=== PATIENT | male | born 1930 | race Caucasian/White ===

== ENCOUNTER 2017-10-20 10:58 | Emergency (ER) | payer MEDICARE ==
[~2017-10-20] VITALS: Ht 172.7 cm; Wt 66.4 kg
[2017-10-20 10:59] VITALS: BP 130/55; Ht 172.7 cm; Wt 66.4 kg
[2017-10-20] MEDS ORDERED: TENORMIN25 MG PO (11:02)
[2017-10-20] MEDS ORDERED: MINIPRESS2 MG PO (11:03)
[2017-10-20] MEDS ORDERED: DEPAKOTE SPRIN125 MG PO ×2 (11:03→11:06)
[2017-10-20] MEDS ORDERED: PROTONIX40 MG PO (11:04)
[2017-10-20] MEDS ORDERED: VICKS VAPORUB O50 GM TOPICAL (11:04)
[2017-10-20] MEDS ORDERED: LEVSIN/ANASP0.125 MG PO (11:05)
[2017-10-20] MEDS ORDERED: COLACE100 MG PO (11:05)
[2017-10-20] MEDS ORDERED: TEGRETOL XR200 M1 PO (11:05)
[2017-10-20] MEDS ORDERED: FLOMAX0.4 MG PO (11:05)
[2017-10-20] MEDS ORDERED: EFFEXOR37.5 MG PO (11:06)
[2017-10-20] MEDS ORDERED: MIRALAX17 GM PO (11:06)
[2017-10-20] MEDS ORDERED: ACETAMINOPHEN325 MG PO (11:07)
[2017-10-20] MEDS ORDERED: ZOFRAN ODT4 MG/UDTAB PO (11:07)
[2017-10-20] MEDS ORDERED: PREPARATION H O57 GM TOPICAL (11:07)
[2017-10-20 12:59] LABS: ALBUMIN 2.7 g/dL (3.4-5.0); ALKALINE PHOSPHATASE 116 U/L (46-116); ALT (SGPT) 13 U/L (10-68); BILIRUBIN - TOTAL 0.19 mg/dL (0.2-1.3); CALC OSMOLALITY 276 mosm/kg (275-300); CALCIUM 8.5 mg/dL (8.5-10.1); CARBON DIOXIDE 27.2 mmol/L (21.0-32.0); CHLORIDE - SERUM 102 mmol/L (98-107); GLUCOSE 110 mg/dL (74-106); POTASSIUM - SERUM 5.1 mmol/L (3.5-5.1); PROTEIN - SERUM 6.8 g/dL (6.4-8.2); SODIUM 137 mmol/L (136-145); UREA NITROGEN 19 mg/dL (7-18); eGFR NON AFRICAN AMERICAN 75 mL/min (90-120)
[2017-10-20 14:32] LABS: BASOPHILS 0.3 % (0-2); EOSINOPHILS 1.6 % (0-7); HEMATOCRIT 31.4 % (42.0-54.0); HEMOGLOBIN 10.1 g/dL (13.5-17.5); IMMATURE GRANULOCYTES 0.8 % (0-5); LYMPHOCYTES 26.4 % (15-50); MCHC 32.2 g/dL (31.0-37.0); MEAN PLATELET VOLUME 10.5 fL (7.4-10.4); MONOCYTES 19.6 % (2-11); NEUTROPHILS 51.3 % (40-80); RBC 3.61 10x6/uL (4.20-6.10); RDW 17.8 % (11.5-14.5); WBC 6.4 10x3/uL (4.8-10.8)
[2017-10-20 14:39] LABS: PLATELET COUNT 158 10x3/uL (130-400)
[2017-10-20 15:14] LABS: APPEARANCE CLEAR (CLEAR); BILIRUBIN NEGATIVE (NEGATIVE); COLOR YELLOW (YELLOW); GLUCOSE NEGATIVE (NEGATIVE); KETONE NEGATIVE (NEGATIVE); NITRITE NEGATIVE (NEGATIVE); PROTEIN NEGATIVE (NEGATIVE); UROBILINOGEN NORMAL (NORMAL)
[2017-10-20 15:15] LABS: BACTERIA MANY /hpf (NONE SEEN); RED CELLS - URINE 0-5 /hpf (0-5); WHITE CELLS - URINE >50 /hpf (0-5)
[2017-10-20] MEDS ORDERED: CIPRO500 MG PO (15:51)
[2017-10-20] MEDS ORDERED: HYDROCODON-ACE1 EAC7 PO (16:46)
== END 2017-10-20 19:25 ==
LOC: D.ER 10:58
PROVIDERS: Emergency Medicine
DX: S32.019A Unspecified fracture of first lumbar vertebra, initial encounter for closed fracture (principal); W19.XXXA Unspecified fall, initial encounter; Y93.89 Activity, other specified; Y92.129 Unspecified place in nursing home as the place of occurrence of the external cause; K56.41 Fecal impaction; N39.0 Urinary tract infection, site not specified; R10.9 Unspecified abdominal pain; G30.9 Alzheimer's disease, unspecified; F02.80 Dementia in other diseases classified elsewhere, unspecified severity, without behavioral disturbance, psychotic disturbance, mood disturbance, and anxiety; I10 Essential (primary) hypertension